=== PATIENT | female | born 1965 | race Caucasian/White ===

== ENCOUNTER → 2018-03-19 | Outpatient (CLI) | payer OTHER ==
[~2018-03-19] MED LIST: BUPR150T2; BUPR150T2 PO; BUTASPCAF PO; Bactrim Ds Tab1 EACH PO; Budeprion Sr150 MG; Budeprion Xl300 MG; CODBUTASA PO; CYAN100 PO; CYCL10 PO; DHEA PO; DULO60 PO; ESCI10; ESCI20; FETZIMA120 MG PO; FETZIMA20 MG PO; FISH1000 PO; FLUO10 PO; IRON150C; KETO10 PO; LAMO25; META800 PO; MULVITMIND PO; PANT40 PO; PENICILLIN; Pyridium200 MG PO; Sprintec1 EACH PO; TOPI100 PO; TOPI25; TOPI50 PO; Vitamin D2000 UNIT PO; ZIPR20 PO; ZOLP5 PO
== END ==
LOC: LAB 11:50 → LAB SHORT 11:50
DX: Z11.3 Encounter for screening for infections with a predominantly sexual mode of transmission (principal)
CPT/HCPCS: 87070; 87077; 87147; 87186; 87205

== ENCOUNTER 2018-09-13 20:59 | Emergency (ER) | payer OTHER ==
[~2018-09-13] VITALS: Ht 162.6 cm; Wt 79.4 kg
[2018-09-13] MEDS ORDERED: FLUO10 PO (21:18)
[2018-09-13] MEDS ORDERED: BUPR100 PO (21:18)
[2018-09-13 21:21] LABS: Source, Urine Clean Catch
[2018-09-13 21:23] LABS: Bilirubin, Urine Neg (Neg); Blood, Urine 1+ (Neg); Glucose Qualitative, Urine Neg (Neg); Ketones, Urine Neg (Neg); Leukocyte Esterase, Urine 3+ (Neg); Nitrite, Urine Neg (Neg); Protein, Urine 1+ (Neg); Specific Gravity, Urine 1.025 (1.003-1.022); Urobilinogen, Urine NORM (Normal)
[2018-09-13 21:48] LABS: Appearance, Urine Hazy (Clear); Color, Urine Yellow (P-Yellow)
[2018-09-13 21:53] LABS: Bacteria Few /hpf; Calcium Oxalate Crystals Few /hpf; Squamous Epithelial Cells Few /hpf (Few)
[2018-09-13] MEDS ORDERED: Cipro500 MG PO (21:54)
[2018-09-13] MEDS ORDERED: KETO10 PO (21:57)
== END 2018-09-13 22:01 | disposition home or self-care (01) ==
LOC: ER 20:59
PROVIDERS: Physician Assistant
DX: N12 Tubulo-interstitial nephritis, not specified as acute or chronic (principal); F32.9 Major depressive disorder, single episode, unspecified; Z88.8 Allergy status to other drugs, medicaments and biological substances; Z79.899 Other long term (current) drug therapy; Z87.891 Personal history of nicotine dependence
CPT/HCPCS: 81001; 87086; 99283

== ENCOUNTER 2019-07-29 12:25 | Emergency (ER) | payer OTHER, BC ==
[~2019-07-29] VITALS: Ht 162.6 cm; Wt 86.2 kg
[~2019-07-29 12:25] MED LIST changes: +BUPR100 PO; +Cipro500 MG PO
[2019-07-29] MEDS ORDERED: DESV50 (14:19)
[2019-07-29] MEDS ORDERED: ONDA4ODT SL (15:20)
[2019-07-29] MEDS ORDERED: HYDR1TAB94 PO (15:20)
== END 2019-07-29 15:27 | disposition home or self-care (01) ==
LOC: ER 12:25
DX: R51 Headache (principal); F32.9 Major depressive disorder, single episode, unspecified; Z86.19 Personal history of other infectious and parasitic diseases; Z88.8 Allergy status to other drugs, medicaments and biological substances; Z79.899 Other long term (current) drug therapy; Z87.891 Personal history of nicotine dependence; V49.9XXA Car occupant (driver) (passenger) injured in unspecified traffic accident, initial encounter
CPT/HCPCS: 93005; 93010; 96361; 96374; 96375; 99285-25; J1200; J1885; J2765; J7120

== ENCOUNTER 2019-08-05 17:46 | Emergency (ER) | payer BC ==
[~2019-08-05] VITALS: Ht 162.6 cm; Wt 86.2 kg
[~2019-08-05 17:46] MED LIST changes: +DESV50; +HYDR1TAB94 PO; +ONDA4ODT SL
[2019-08-05] MEDS ORDERED: ERYT1OIN LEFTEYE (18:01)
== END 2019-08-05 18:00 | disposition home or self-care (01) ==
LOC: ER 17:46
DX: H10.9 Unspecified conjunctivitis (principal); Z88.8 Allergy status to other drugs, medicaments and biological substances; Z79.899 Other long term (current) drug therapy; Z87.891 Personal history of nicotine dependence
CPT/HCPCS: 99283

== ENCOUNTER 2019-09-19 16:29 | Emergency (ER) | payer SELFPAY ==
[~2019-09-19] VITALS: Ht 162.6 cm; Wt 84.4 kg
[~2019-09-19 16:29] MED LIST changes: -DESV50; +DESV50 PO; +ERYT1OIN LEFTEYE
[2019-09-19 17:28] LABS: BASOPHILS ABSOLUTE AUTO 0.06 K/mm3 (0.00-0.23); BASOPHILS PERCENT AUTO 1 % (0-2); EOSINOPHILS ABSOLUTE AUTO 0.26 K/mm3 (0.00-0.68); EOSINOPHILS PERCENT AUTO 3 % (0-6); Hematocrit 40.7 % (33.0-51.0); Hemoglobin 13.2 g/dL (11.5-16.0); IMMATURE GRAN ABSOLUTE AUTO 0.05 K/mm3 (0.00-0.10); IMMATURE GRAN PERCENT AUTO 1 % (0-1); LYMPHOCYTES ABSOLUTE AUTO 2.17 K/mm3 (0.84-5.20); LYMPHOCYTES PERCENT AUTO 25 % (21-46); MONOCYTES ABSOLUTE AUTO 0.84 K/mm3 (0.16-1.47); MONOCYTES PERCENT AUTO 10 % (4-13); Mean Corpuscular HGB 31.1 pg (26.0-34.0); Mean Corpuscular HGB Conc 32.4 g/dL (31.5-36.5); Mean Corpuscular Volume 96 fL (80-100); NEUTROPHILS ABSOLUTE AUTO 5.15 K/mm3 (1.96-9.15); NEUTROPHILS PERCENT AUTO 61 % (41-73); Platelet Count 321 K/mm3 (150-400); RDW Coefficient Variation 12.9 % (11.7-14.2); RDW Standard Deviation 46.1 fL (35.1-46.3); Red Blood Cell Count 4.24 M/mm3 (3.80-5.20); White Blood Cell Count 8.53 K/mm3 (4.00-11.30)
[2019-09-19 17:49] LABS: Alanine Aminotransfer (ALT/SGP 27 U/L (12-78); Albumin, Blood 3.6 g/dL (3.4-5.0); Alk Phos 71 U/L (50-136); Anion Gap 5 mmol/L (6-16); Aspartate Aminotrans (AST/SGOT 21 U/L (12-37); Bilirubin, Total 0.3 mg/dL (0.1-1.0); Blood Urea Nitrogen 11 mg/dL (8-24); Bun/Creatinine Ratio 21.4 (12.0-20.0); CO2, Blood 25 mmol/L (21-32); Calcium, Blood 8.6 mg/dL (8.5-10.1); Chloride, Blood 109 mmol/L (98-108); Creatinine, Blood 0.51 mg/dL (0.40-1.00); Globulin, Blood 3.7 g/dL (2.2-4.0); Glomerular Filtration Rate >60 (60-); Glucose, Blood 105 mg/dL (70-99); Potassium, Blood 3.6 mmol/L (3.5-5.5); Sodium, Blood 139 mmol/L (136-145); Total Protein, Blood 7.3 g/dL (6.4-8.2)
[2019-09-19 17:51] LABS: Troponin I <0.015 ng/mL (0.000-0.040)
[2019-09-19] MEDS ORDERED: PROG100 (20:10)
[2019-09-19] MEDS ORDERED: ESZOPICLONE3 MG PO (20:10)
[2019-09-19] MEDS ORDERED: Prednisone20 MG PO (20:19)
[2019-09-19] MEDS ORDERED: ALBU90OI INH (20:19)
== END 2019-09-19 20:34 | disposition home or self-care (01) ==
LOC: ER 16:29
PROVIDERS: Emergency Medicine
DX: J20.9 Acute bronchitis, unspecified (principal); Z88.8 Allergy status to other drugs, medicaments and biological substances; Z87.891 Personal history of nicotine dependence; Z79.899 Other long term (current) drug therapy
CPT/HCPCS: 36415; 71046; 80053; 84484; 85025; 93005; 93010; 94640; 99284-25; J7512

== ENCOUNTER 2019-09-25 11:50 | Emergency (ER) | payer SELFPAY ==
[~2019-09-25] VITALS: Ht 162.6 cm; Wt 83.5 kg
[~2019-09-25 11:50] MED LIST changes: +ALBU90OI INH; +ESZOPICLONE3 MG PO; +PROG100; +Prednisone20 MG PO
[2019-09-25 12:33] LABS: BASOPHILS ABSOLUTE AUTO 0.07 K/mm3 (0.00-0.23); BASOPHILS PERCENT AUTO 1 % (0-2); EOSINOPHILS ABSOLUTE AUTO 0.25 K/mm3 (0.00-0.68); EOSINOPHILS PERCENT AUTO 2 % (0-6); Hematocrit 38.5 % (33.0-51.0); IMMATURE GRAN ABSOLUTE AUTO 0.11 K/mm3 (0.00-0.10); IMMATURE GRAN PERCENT AUTO 1 % (0-1); LYMPHOCYTES PERCENT AUTO 15 % (21-46); MONOCYTES ABSOLUTE AUTO 1.11 K/mm3 (0.16-1.47); MONOCYTES PERCENT AUTO 9 % (4-13); Mean Corpuscular HGB 31.9 pg (26.0-34.0); Mean Corpuscular HGB Conc 33.8 g/dL (31.5-36.5); Mean Corpuscular Volume 94 fL (80-100); NEUTROPHILS ABSOLUTE AUTO 9.23 K/mm3 (1.96-9.15); NEUTROPHILS PERCENT AUTO 73 % (41-73); Platelet Count 348 K/mm3 (150-400); RDW Coefficient Variation 12.7 % (11.7-14.2); RDW Standard Deviation 43.9 fL (35.1-46.3); Red Blood Cell Count 4.08 M/mm3 (3.80-5.20); White Blood Cell Count 12.67 K/mm3 (4.00-11.30)
[2019-09-25 12:58] LABS: Alanine Aminotransfer (ALT/SGP 24 U/L (12-78); Albumin, Blood 3.4 g/dL (3.4-5.0); Albumin/Globulin Ratio 0.8 (0.8-1.8); Alk Phos 71 U/L (50-136); Anion Gap 7 mmol/L (6-16); Aspartate Aminotrans (AST/SGOT 21 U/L (12-37); Bilirubin, Total 0.2 mg/dL (0.1-1.0); Blood Urea Nitrogen 11 mg/dL (8-24); Bun/Creatinine Ratio 17.1 (12.0-20.0); CO2, Blood 24 mmol/L (21-32); Chloride, Blood 107 mmol/L (98-108); Creatinine, Blood 0.64 mg/dL (0.40-1.00); Glomerular Filtration Rate >60 (60-); Glucose, Blood 83 mg/dL (70-99); Potassium, Blood 4.1 mmol/L (3.5-5.5); Sodium, Blood 138 mmol/L (136-145); Total Protein, Blood 7.4 g/dL (6.4-8.2)
[2019-09-25] MEDS ORDERED: Bactrim Ds Tab1 EACH PO (14:08)
[2019-09-25] MEDS ORDERED: Naprosyn500 MG PO (14:08)
== END 2019-09-25 14:22 | disposition home or self-care (01) ==
LOC: ER 11:50
PROVIDERS: Physician Assistant
DX: N61.1 Abscess of the breast and nipple (principal); F32.9 Major depressive disorder, single episode, unspecified; Z23 Encounter for immunization; Z87.891 Personal history of nicotine dependence; Z79.899 Other long term (current) drug therapy
CPT/HCPCS: 10060; 36415; 80053; 85025; 90471; 90714; 99283-25; A9270-GY

== ENCOUNTER 2019-09-30 20:45 | Emergency (ER) | payer SELFPAY ==
[~2019-09-30] VITALS: Ht 162.6 cm; Wt 83.0 kg
[~2019-09-30 20:45] MED LIST changes: +Naprosyn500 MG PO
== END 2019-09-30 23:38 | disposition home or self-care (01) ==
LOC: ER 20:45
DX: S20.36 Insect bite (nonvenomous) of front wall of thorax (principal); Z88.8 Allergy status to other drugs, medicaments and biological substances; Z79.899 Other long term (current) drug therapy; Z87.891 Personal history of nicotine dependence
CPT/HCPCS: 76604; 99283-25

== ENCOUNTER → 2019-12-27 | Outpatient (CLI) | payer OTHER | END | disposition home or self-care (01) | LOC: LAB SHORT 18:40 → LAB EV 18:40 | DX: R30.9 Painful micturition, unspecified (principal) | CPT/HCPCS: 87086 ==

== ENCOUNTER → 2020-02-06 | Outpatient (CLI) | payer OTHER | END | disposition home or self-care (01) | LOC: LAB EV 18:32 → LAB SHORT 18:32 | DX: N39.0 Urinary tract infection, site not specified (principal) | CPT/HCPCS: 87077; 87086; 87186 ==

== ENCOUNTER → 2020-09-01 | Outpatient (CLI) | payer OTHER, SELFPAY | END | disposition home or self-care (01) | LOC: LAB SHORT 19:02 → LAB 19:02 | DX: L03.90 Cellulitis, unspecified (principal) | CPT/HCPCS: 87070; 87075; 87077; 87147; 87186; 87205 ==

== ENCOUNTER → 2020-09-05 | Outpatient (CLI) | payer OTHER | END | disposition home or self-care (01) | LOC: LAB SHORT 16:52 → LAB 16:52 | DX: L03.115 Cellulitis of right lower limb (principal) | CPT/HCPCS: 87070; 87075; 87205 ==

== ENCOUNTER → 2020-10-16 | Outpatient (CLI) | payer OTHER, SELFPAY | END | disposition home or self-care (01) | LOC: LAB 18:41 → LAB SHORT 18:41 | DX: R35.0 Frequency of micturition (principal) | CPT/HCPCS: 87086 ==

== ENCOUNTER → 2022-04-27 | Outpatient (CLI) | payer OTHER | END | disposition home or self-care (01) | LOC: LAB SHORT 10:18 → LAB 10:18 | DX: J32.9 Chronic sinusitis, unspecified (principal) | CPT/HCPCS: 87070; 87077; 87147; 87186 ==

== ENCOUNTER → 2022-12-05 | Outpatient (CLI) | payer OTHER | END | disposition home or self-care (01) | LOC: LAB 18:16 → LAB SHORT 18:16 | DX: T81.49XA Infection following a procedure, other surgical site, initial encounter (principal) | CPT/HCPCS: 87070; 87077; 87147; 87186; 87205 ==

== ENCOUNTER 2023-02-10 17:32 | Emergency (ER) | payer OTHER ==
[~2023-02-10] VITALS: Ht 162.6 cm; Wt 81.2 kg
[2023-02-10 17:47] VITALS: BP 122/92
[2023-02-10 18:10] LABS: BASOPHILS ABSOLUTE AUTO 0.05 K/mm3 (0.00-0.23); BASOPHILS PERCENT AUTO 1 % (0-2); EOSINOPHILS ABSOLUTE AUTO 0.25 K/mm3 (0.00-0.68); EOSINOPHILS PERCENT AUTO 3 % (0-6); Hematocrit 38.7 % (33.0-51.0); Hemoglobin 13.1 g/dL (11.5-16.0); IMMATURE GRAN ABSOLUTE AUTO 0.05 K/mm3 (0.00-0.10); IMMATURE GRAN PERCENT AUTO 1 % (0-1); LYMPHOCYTES ABSOLUTE AUTO 1.82 K/mm3 (0.84-5.20); LYMPHOCYTES PERCENT AUTO 25 % (21-46); MONOCYTES ABSOLUTE AUTO 0.68 K/mm3 (0.16-1.47); MONOCYTES PERCENT AUTO 9 % (4-13); Mean Corpuscular HGB 30.8 pg (26.0-34.0); Mean Corpuscular HGB Conc 33.9 g/dL (31.5-36.5); Mean Corpuscular Volume 91 fL (80-100); Mean Platelet Volume 9.4 fL (9.1-12.4); NEUTROPHILS ABSOLUTE AUTO 4.55 K/mm3 (1.96-9.15); NEUTROPHILS PERCENT AUTO 61 % (41-73); Platelet Count 365 K/mm3 (150-400); RDW Coefficient Variation 14.1 % (11.7-14.2); RDW Standard Deviation 47.1 fL (35.1-46.3); Red Blood Cell Count 4.25 M/mm3 (3.80-5.20)
[2023-02-10 18:26] LABS: C-REACTIVE PROTEIN, EXT RANGE 1.21 mg/dL (0.000-0.300)
[2023-02-10 18:32] LABS: Albumin, Blood 3.5 g/dL (3.4-5.0); Albumin/Globulin Ratio 0.8 (0.8-1.8); Bilirubin, Total 0.2 mg/dL (0.1-1.0); Bun/Creatinine Ratio 25.6 (12.0-20.0); Creatinine, Blood 0.66 mg/dL (0.40-1.00); Globulin, Blood 4.5 g/dL (2.2-4.0); Potassium, Blood 3.9 mmol/L (3.5-5.5)
[2023-02-10] MEDS ORDERED: DOXY100 PO (21:56)
[2023-02-10] MEDS ORDERED: FLUC200 PO (22:01)
== END 2023-02-10 22:14 | disposition home or self-care (01) ==
LOC: ER 17:32
PROVIDERS: Physician Assistant
DX: L02.211 Cutaneous abscess of abdominal wall (principal); L03.311 Cellulitis of abdominal wall; Z22.322 Carrier or suspected carrier of Methicillin resistant Staphylococcus aureus; Z88.8 Allergy status to other drugs, medicaments and biological substances; Z79.899 Other long term (current) drug therapy; Z87.891 Personal history of nicotine dependence
CPT/HCPCS: 74177; 80053; 85025; 86140; 87070; 87075; 87077; 87147; 87186; 87205; 96374-59; 96375; 96376; 99284-25; A9270; J1170; J1885; J2405; Q9967

== ENCOUNTER 2023-02-15 11:52 | Day surgery (SDC) | payer OTHER ==
[~2023-02-15 11:52] MED LIST changes: +DOXY100 PO; +FLUC200 PO
== END 2023-02-15 22:46 | disposition home or self-care (01) ==
LOC: WOUND 11:52
DX: L02.211 Cutaneous abscess of abdominal wall (principal); L03.311 Cellulitis of abdominal wall; B95.62 Methicillin resistant Staphylococcus aureus infection as the cause of diseases classified elsewhere; S31.109D Unspecified open wound of abdominal wall, unspecified quadrant without penetration into peritoneal cavity, subsequent encounter; X58.XXXD Exposure to other specified factors, subsequent encounter; Z87.891 Personal history of nicotine dependence
CPT/HCPCS: A9270; G0463

== ENCOUNTER 2023-02-17 01:00 | Day surgery (SDC) | payer OTHER | END 2023-02-17 22:43 | disposition home or self-care (01) | LOC: WOUND 01:00 | DX: S31.109D Unspecified open wound of abdominal wall, unspecified quadrant without penetration into peritoneal cavity, subsequent encounter (principal); L02.211 Cutaneous abscess of abdominal wall; L03.311 Cellulitis of abdominal wall; B95.62 Methicillin resistant Staphylococcus aureus infection as the cause of diseases classified elsewhere | CPT/HCPCS: G0463 ==

== ENCOUNTER 2023-02-20 00:36 | Day surgery (SDC) | payer OTHER | END 2023-02-20 23:04 | disposition home or self-care (01) | LOC: WOUND 00:36 | DX: L03.311 Cellulitis of abdominal wall (principal); S31.109D Unspecified open wound of abdominal wall, unspecified quadrant without penetration into peritoneal cavity, subsequent encounter; L02.211 Cutaneous abscess of abdominal wall; B95.62 Methicillin resistant Staphylococcus aureus infection as the cause of diseases classified elsewhere; X58.XXXD Exposure to other specified factors, subsequent encounter | CPT/HCPCS: A9270; G0463 ==

== ENCOUNTER 2023-02-22 01:54 | Day surgery (SDC) | payer OTHER | END 2023-02-22 22:54 | disposition home or self-care (01) | LOC: WOUND 01:54 | DX: L02.211 Cutaneous abscess of abdominal wall (principal); L03.311 Cellulitis of abdominal wall; B95.62 Methicillin resistant Staphylococcus aureus infection as the cause of diseases classified elsewhere; S31.109D Unspecified open wound of abdominal wall, unspecified quadrant without penetration into peritoneal cavity, subsequent encounter; X58.XXXD Exposure to other specified factors, subsequent encounter | CPT/HCPCS: G0463 ==

== ENCOUNTER 2023-02-24 03:55 | Day surgery (SDC) | payer OTHER | END 2023-02-24 22:37 | disposition home or self-care (01) | LOC: WOUND 03:55 | DX: L03.311 Cellulitis of abdominal wall (principal); S31.109D Unspecified open wound of abdominal wall, unspecified quadrant without penetration into peritoneal cavity, subsequent encounter; L02.211 Cutaneous abscess of abdominal wall; B95.62 Methicillin resistant Staphylococcus aureus infection as the cause of diseases classified elsewhere | CPT/HCPCS: G0463 ==

== ENCOUNTER 2023-02-27 00:16 | Day surgery (SDC) | payer OTHER | END 2023-02-27 23:03 | disposition home or self-care (01) | LOC: WOUND 00:16 | DX: L03.311 Cellulitis of abdominal wall (principal); S31.109D Unspecified open wound of abdominal wall, unspecified quadrant without penetration into peritoneal cavity, subsequent encounter; L02.211 Cutaneous abscess of abdominal wall; B95.62 Methicillin resistant Staphylococcus aureus infection as the cause of diseases classified elsewhere; X58.XXXD Exposure to other specified factors, subsequent encounter | CPT/HCPCS: G0463 ==

== ENCOUNTER 2023-03-22 02:33 | Day surgery (SDC) | payer OTHER | END 2023-03-22 23:10 | disposition home or self-care (01) | LOC: WOUND 02:33 | DX: L02.211 Cutaneous abscess of abdominal wall (principal); L03.311 Cellulitis of abdominal wall; S31.109D Unspecified open wound of abdominal wall, unspecified quadrant without penetration into peritoneal cavity, subsequent encounter; B95.62 Methicillin resistant Staphylococcus aureus infection as the cause of diseases classified elsewhere | CPT/HCPCS: A9270; G0463 ==

== ENCOUNTER → 2023-03-25 | Outpatient (CLI) | payer OTHER | END | disposition home or self-care (01) | LOC: LAB 15:03 → LAB SHORT 15:03 | DX: N39.0 Urinary tract infection, site not specified (principal) | CPT/HCPCS: 87077; 87086; 87147; 87186 ==

== ENCOUNTER 2023-03-27 02:25 | Day surgery (SDC) | payer OTHER | END 2023-03-27 23:01 | disposition home or self-care (01) | LOC: WOUND | DX: L02.211 Cutaneous abscess of abdominal wall (principal); L03.311 Cellulitis of abdominal wall; S31.109D Unspecified open wound of abdominal wall, unspecified quadrant without penetration into peritoneal cavity, subsequent encounter; B95.62 Methicillin resistant Staphylococcus aureus infection as the cause of diseases classified elsewhere | CPT/HCPCS: A9270 ==

== ENCOUNTER 2023-04-03 00:38 | Day surgery (SDC) | payer OTHER | END 2023-04-03 22:49 | disposition home or self-care (01) | LOC: WOUND 00:38 | DX: L02.211 Cutaneous abscess of abdominal wall (principal); L03.311 Cellulitis of abdominal wall; S31.109D Unspecified open wound of abdominal wall, unspecified quadrant without penetration into peritoneal cavity, subsequent encounter; B95.62 Methicillin resistant Staphylococcus aureus infection as the cause of diseases classified elsewhere | CPT/HCPCS: A9270; G0463 ==

== ENCOUNTER 2023-04-10 01:42 | Day surgery (SDC) | payer OTHER | END 2023-04-10 22:56 | disposition home or self-care (01) | LOC: WOUND 01:42 | DX: L02.211 Cutaneous abscess of abdominal wall (principal); S31.109D Unspecified open wound of abdominal wall, unspecified quadrant without penetration into peritoneal cavity, subsequent encounter; X58.XXXD Exposure to other specified factors, subsequent encounter; L03.311 Cellulitis of abdominal wall; B95.62 Methicillin resistant Staphylococcus aureus infection as the cause of diseases classified elsewhere | CPT/HCPCS: A9270 ==

== ENCOUNTER 2023-04-12 01:22 | Day surgery (SDC) | payer OTHER | END 2023-04-12 22:50 | disposition home or self-care (01) | LOC: WOUND 01:22 | DX: S31.109D Unspecified open wound of abdominal wall, unspecified quadrant without penetration into peritoneal cavity, subsequent encounter (principal); L02.211 Cutaneous abscess of abdominal wall; L03.311 Cellulitis of abdominal wall; B95.62 Methicillin resistant Staphylococcus aureus infection as the cause of diseases classified elsewhere; X58.XXXD Exposure to other specified factors, subsequent encounter | CPT/HCPCS: G0463 ==

== ENCOUNTER 2023-04-14 00:57 | Day surgery (SDC) | payer OTHER | END 2023-04-14 22:58 | disposition home or self-care (01) | LOC: WOUND 00:57 | DX: S31.109D Unspecified open wound of abdominal wall, unspecified quadrant without penetration into peritoneal cavity, subsequent encounter (principal); L02.211 Cutaneous abscess of abdominal wall; L03.311 Cellulitis of abdominal wall; B95.62 Methicillin resistant Staphylococcus aureus infection as the cause of diseases classified elsewhere | CPT/HCPCS: G0463 ==

== ENCOUNTER 2023-04-18 08:44 | Day surgery (SDC) | payer OTHER | END 2023-04-18 23:19 | disposition home or self-care (01) | LOC: WOUND 08:44 | DX: S31.109D Unspecified open wound of abdominal wall, unspecified quadrant without penetration into peritoneal cavity, subsequent encounter (principal); L02.211 Cutaneous abscess of abdominal wall; L03.311 Cellulitis of abdominal wall; B95.62 Methicillin resistant Staphylococcus aureus infection as the cause of diseases classified elsewhere | CPT/HCPCS: G0463 ==

== ENCOUNTER 2023-04-20 01:36 | Day surgery (SDC) | payer OTHER | END 2023-04-20 22:41 | disposition home or self-care (01) | LOC: WOUND 01:36 | DX: L02.211 Cutaneous abscess of abdominal wall (principal); L03.311 Cellulitis of abdominal wall; S31.109D Unspecified open wound of abdominal wall, unspecified quadrant without penetration into peritoneal cavity, subsequent encounter; B95.62 Methicillin resistant Staphylococcus aureus infection as the cause of diseases classified elsewhere | CPT/HCPCS: G0463 ==

== ENCOUNTER 2023-04-24 01:06 | Day surgery (SDC) | payer OTHER | END 2023-04-24 22:51 | disposition home or self-care (01) | LOC: WOUND 01:06 | DX: S31.109D Unspecified open wound of abdominal wall, unspecified quadrant without penetration into peritoneal cavity, subsequent encounter (principal); X58.XXXD Exposure to other specified factors, subsequent encounter; L02.211 Cutaneous abscess of abdominal wall; L03.311 Cellulitis of abdominal wall; B95.62 Methicillin resistant Staphylococcus aureus infection as the cause of diseases classified elsewhere | CPT/HCPCS: A9270; G0463 ==

== ENCOUNTER 2023-04-28 07:45 | Day surgery (SDC) | payer OTHER | END 2023-04-28 22:48 | disposition home or self-care (01) | LOC: WOUND 07:45 | DX: S31.109D Unspecified open wound of abdominal wall, unspecified quadrant without penetration into peritoneal cavity, subsequent encounter (principal); L02.211 Cutaneous abscess of abdominal wall; X58.XXXD Exposure to other specified factors, subsequent encounter | CPT/HCPCS: G0463 ==

== ENCOUNTER 2023-05-01 01:46 | Day surgery (SDC) | payer OTHER | END 2023-05-01 23:03 | disposition home or self-care (01) | LOC: WOUND 01:46 | DX: L02.211 Cutaneous abscess of abdominal wall (principal); L03.311 Cellulitis of abdominal wall; S31.109D Unspecified open wound of abdominal wall, unspecified quadrant without penetration into peritoneal cavity, subsequent encounter; B95.62 Methicillin resistant Staphylococcus aureus infection as the cause of diseases classified elsewhere | CPT/HCPCS: A9270; G0463 ==

== ENCOUNTER → 2023-05-16 | Outpatient (CLI) | payer OTHER | LOC: LAB SHORT 16:03 → LAB 16:03 | DX: R39.15 Urgency of urination (principal) | CPT/HCPCS: 87086 ==

== ENCOUNTER 2023-05-22 01:10 | Day surgery (SDC) | payer OTHER | END 2023-05-22 23:13 | disposition home or self-care (01) | LOC: WOUND 01:10 | DX: L03.311 Cellulitis of abdominal wall (principal); L02.211 Cutaneous abscess of abdominal wall; B95.62 Methicillin resistant Staphylococcus aureus infection as the cause of diseases classified elsewhere; S31.109D Unspecified open wound of abdominal wall, unspecified quadrant without penetration into peritoneal cavity, subsequent encounter; X58.XXXD Exposure to other specified factors, subsequent encounter | CPT/HCPCS: A9270; G0463 ==

== ENCOUNTER 2023-05-29 00:27 | Day surgery (SDC) | payer OTHER | END 2023-05-29 22:55 | disposition home or self-care (01) | LOC: WOUND 00:27 | DX: L02.11 Cutaneous abscess of neck (principal); L03.311 Cellulitis of abdominal wall; S31.109D Unspecified open wound of abdominal wall, unspecified quadrant without penetration into peritoneal cavity, subsequent encounter; B95.62 Methicillin resistant Staphylococcus aureus infection as the cause of diseases classified elsewhere | CPT/HCPCS: A9270; G0463 ==

== ENCOUNTER 2023-06-19 02:33 | Day surgery (SDC) | payer OTHER | END 2023-06-19 22:44 | disposition home or self-care (01) | LOC: WOUND 02:33 | DX: L02.211 Cutaneous abscess of abdominal wall (principal); L03.311 Cellulitis of abdominal wall; B95.62 Methicillin resistant Staphylococcus aureus infection as the cause of diseases classified elsewhere; S31.109D Unspecified open wound of abdominal wall, unspecified quadrant without penetration into peritoneal cavity, subsequent encounter | CPT/HCPCS: A9270; G0463 ==

== ENCOUNTER 2023-06-26 00:45 | Day surgery (SDC) | payer OTHER ==
[~2023-06-26 00:45] MED LIST changes: -PROG100; +PROG100 PO
[2023-06-29] MEDS ORDERED: Budeprion Xl300 MG PO (12:20)
[2023-06-29] MEDS ORDERED: VITAMIN D310 MC4 PO (12:21)
[2023-06-29] MEDS ORDERED: CAPLYTA42 MG PO (12:22)
[2023-06-29] MEDS ORDERED: Adipex-P37.5 M1 PO (12:22)
[2023-06-29] MEDS ORDERED: MULVITA PO (12:22)
[2023-06-29] MEDS ORDERED: MINOXIDIL PO (12:22)
[2023-06-29] MEDS ORDERED: KYZATREX100 MG (12:23)
== END 2023-06-26 22:53 | disposition home or self-care (01) ==
LOC: WOUND 00:45
DX: S31.109D Unspecified open wound of abdominal wall, unspecified quadrant without penetration into peritoneal cavity, subsequent encounter (principal); X58.XXXD Exposure to other specified factors, subsequent encounter; L02.211 Cutaneous abscess of abdominal wall; L03.311 Cellulitis of abdominal wall; B95.62 Methicillin resistant Staphylococcus aureus infection as the cause of diseases classified elsewhere
CPT/HCPCS: G0463

== ENCOUNTER 2023-06-30 09:38 | Day surgery (SDC) | payer OTHER ==
[2023-06-30] VITALS (13 sets, daily range): BP systolic 97–119; BP diastolic 53–79
[~2023-06-30] VITALS: Ht 162.6 cm; Wt 83.0 kg
[~2023-06-30 09:38] MED LIST changes: +Adipex-P37.5 M1 PO; +Budeprion Xl300 MG PO; +CAPLYTA42 MG PO; +KYZATREX100 MG; +MINOXIDIL PO; +MULVITA PO; +VITAMIN D310 MC4 PO
--- NOTE | 2023-06-30 12:51 | NUR ---
Ambulatory in Day SurgeryPre-Op teaching done. Pt verbalizes understanding. History, Chart, Medications and Allergies reviewed before start of procedure.Patient confirms NPO status and agrees with scheduled surgery.EXCEPT FOR SIPS OF WATER AT 1100. Patient States Post-Procedure ride home has been arranged.
--- NOTE | 2023-06-30 15:38 | NUR ---
PT TO DAY SURGERY STEP DOWN UNIT FROM PACU. PT AWAKE AND ORIENTED, ABLE TO MOVE SELF IN BED. PT HAS SAMUEL DRAIN AND BANDAGE OVER CENTER OF ABD THAT IS C/D/I. PT REQUESTING PO FLUIDS. PT RIDE IS HERE.
--- NOTE | 2023-06-30 15:53 | NUR ---
PT TOLERATING PO FLUIDS AND CRACKERS WELL. Discharge instructions reviewed with patient. Patient verbalizes understanding. Copy given to patient to take home. Pt has had JAIME drains before, education paper reviewed and sending home with pt. Bandage remains c/d/i. jaime drain in place with no change.
--- NOTE | 2023-06-30 16:25 | NUR ---
ABD BINDER GIVEN TO PT AND PUT ON; PT UNDERSTANDS HOW TO USE. Patient up to Ambulate independently. Gait steady. UP TO VOID, Patient States Post-Procedure ride home has been arranged. Discharged via wheelchair to private car for ride home.
== END 2023-06-30 16:25 | disposition home or self-care (01) ==
LOC: ORSCMMR 09:38 → ORD 11:15 → ORSCMMR 11:15
PROVIDERS: Surgery
PROC: 0JB80ZZ Excision of Abdomen Subcutaneous Tissue and Fascia, Open Approach (ICD-10-PCS; principal; 2023-06-30 14:00)
DX: L02.211 Cutaneous abscess of abdominal wall (principal); F32.A Depression, unspecified; F41.9 Anxiety disorder, unspecified; B19.20 Unspecified viral hepatitis C without hepatic coma; Z87.891 Personal history of nicotine dependence; Z68.31 Body mass index [BMI] 31.0-31.9, adult; Z79.899 Other long term (current) drug therapy
CPT/HCPCS: 88305; A9270; J0690; J1100; J1885; J2250; J2405; J2704; J2765; J3010; J7120

== ENCOUNTER 2023-07-03 02:49 | Day surgery (SDC) | payer OTHER | END 2023-07-03 23:05 | disposition home or self-care (01) | LOC: WOUND 02:49 | DX: Z09 Encounter for follow-up examination after completed treatment for conditions other than malignant neoplasm (principal) | CPT/HCPCS: G0463 ==

== ENCOUNTER → 2023-07-08 | Outpatient (CLI) | payer OTHER | LOC: LAB 15:01 → LAB SHORT 15:01 | DX: T81.49XA Infection following a procedure, other surgical site, initial encounter (principal) | CPT/HCPCS: 87070; 87075; 87077; 87147; 87186; 87205 ==

== ENCOUNTER 2023-07-10 03:04 | Day surgery (SDC) | payer OTHER | END 2023-07-10 23:05 | disposition home or self-care (01) | LOC: WOUND | DX: S31.109D Unspecified open wound of abdominal wall, unspecified quadrant without penetration into peritoneal cavity, subsequent encounter (principal); L02.211 Cutaneous abscess of abdominal wall; L03.311 Cellulitis of abdominal wall; B95.62 Methicillin resistant Staphylococcus aureus infection as the cause of diseases classified elsewhere | CPT/HCPCS: A9270; G0463 ==

== ENCOUNTER 2023-07-17 03:42 | Day surgery (SDC) | payer OTHER | END 2023-07-17 22:53 | disposition home or self-care (01) | LOC: WOUND 03:42 | DX: T81.31XD Disruption of external operation (surgical) wound, not elsewhere classified, subsequent encounter (principal); L02.211 Cutaneous abscess of abdominal wall; L03.311 Cellulitis of abdominal wall; B95.62 Methicillin resistant Staphylococcus aureus infection as the cause of diseases classified elsewhere; Y83.8 Other surgical procedures as the cause of abnormal reaction of the patient, or of later complication, without mention of misadventure at the time of the procedure | CPT/HCPCS: G0463 ==

== ENCOUNTER 2023-07-19 02:38 | Day surgery (SDC) | payer OTHER | END 2023-07-19 22:48 | disposition home or self-care (01) | LOC: WOUND 02:38 | DX: L03.211 Cellulitis of face (principal); L03.311 Cellulitis of abdominal wall; B95.62 Methicillin resistant Staphylococcus aureus infection as the cause of diseases classified elsewhere; S31.109D Unspecified open wound of abdominal wall, unspecified quadrant without penetration into peritoneal cavity, subsequent encounter; X58.XXXD Exposure to other specified factors, subsequent encounter | CPT/HCPCS: 87081; 87147; G0463 ==

== ENCOUNTER 2023-07-21 03:12 | Day surgery (SDC) | payer OTHER | END 2023-07-21 23:13 | disposition home or self-care (01) | LOC: WOUND 03:12 | DX: S31.109D Unspecified open wound of abdominal wall, unspecified quadrant without penetration into peritoneal cavity, subsequent encounter (principal); L02.211 Cutaneous abscess of abdominal wall; L03.311 Cellulitis of abdominal wall; B95.62 Methicillin resistant Staphylococcus aureus infection as the cause of diseases classified elsewhere; X58.XXXD Exposure to other specified factors, subsequent encounter | CPT/HCPCS: G0463 ==

== ENCOUNTER 2023-07-26 04:03 | Day surgery (SDC) | payer OTHER | END 2023-07-26 23:05 | disposition home or self-care (01) | LOC: WOUND 04:03 | DX: S31.109D Unspecified open wound of abdominal wall, unspecified quadrant without penetration into peritoneal cavity, subsequent encounter (principal); L02.11 Cutaneous abscess of neck; L03.311 Cellulitis of abdominal wall; B95.62 Methicillin resistant Staphylococcus aureus infection as the cause of diseases classified elsewhere | CPT/HCPCS: 87081 ==

== ENCOUNTER 2023-07-28 03:55 | Day surgery (SDC) | payer OTHER | END 2023-07-28 22:46 | disposition home or self-care (01) | LOC: WOUND 03:55 | DX: S31.109D Unspecified open wound of abdominal wall, unspecified quadrant without penetration into peritoneal cavity, subsequent encounter (principal); L02.211 Cutaneous abscess of abdominal wall; L03.311 Cellulitis of abdominal wall; B95.62 Methicillin resistant Staphylococcus aureus infection as the cause of diseases classified elsewhere; X58.XXXD Exposure to other specified factors, subsequent encounter | CPT/HCPCS: G0463 ==

== ENCOUNTER 2023-07-31 00:26 | Day surgery (SDC) | payer OTHER | END 2023-07-31 22:56 | disposition home or self-care (01) | LOC: WOUND 00:26 | DX: T81.31XD Disruption of external operation (surgical) wound, not elsewhere classified, subsequent encounter (principal); L02.211 Cutaneous abscess of abdominal wall; L03.311 Cellulitis of abdominal wall; B95.62 Methicillin resistant Staphylococcus aureus infection as the cause of diseases classified elsewhere; Y83.8 Other surgical procedures as the cause of abnormal reaction of the patient, or of later complication, without mention of misadventure at the time of the procedure | CPT/HCPCS: A9270; G0463 ==

== ENCOUNTER 2023-08-04 03:06 | Day surgery (SDC) | payer OTHER | END 2023-08-05 00:06 | disposition home or self-care (01) | LOC: WOUND 03:06 | DX: S31.109D Unspecified open wound of abdominal wall, unspecified quadrant without penetration into peritoneal cavity, subsequent encounter (principal); L02.211 Cutaneous abscess of abdominal wall; L03.311 Cellulitis of abdominal wall; X58.XXXD Exposure to other specified factors, subsequent encounter | CPT/HCPCS: G0463 ==

== ENCOUNTER 2023-08-10 01:52 | Day surgery (SDC) | payer OTHER | END 2023-08-10 22:56 | disposition home or self-care (01) | LOC: WOUND 01:52 | DX: S31.109D Unspecified open wound of abdominal wall, unspecified quadrant without penetration into peritoneal cavity, subsequent encounter (principal); L02.211 Cutaneous abscess of abdominal wall; L03.311 Cellulitis of abdominal wall; X58.XXXD Exposure to other specified factors, subsequent encounter | CPT/HCPCS: G0463 ==

== ENCOUNTER 2023-08-21 04:57 | Day surgery (SDC) | payer OTHER | END 2023-08-21 22:44 | disposition home or self-care (01) | LOC: WOUND 04:57 | DX: S31.109D Unspecified open wound of abdominal wall, unspecified quadrant without penetration into peritoneal cavity, subsequent encounter (principal); L02.211 Cutaneous abscess of abdominal wall; L03.311 Cellulitis of abdominal wall | CPT/HCPCS: G0463 ==

== ENCOUNTER → 2023-09-24 | Outpatient (CLI) | payer OTHER ==
[2023-09-24 15:09] LABS: BASOPHILS ABSOLUTE AUTO 0.04 K/mm3 (0.00-0.23); BASOPHILS PERCENT AUTO 0 % (0-2); EOSINOPHILS ABSOLUTE AUTO 0.11 K/mm3 (0.00-0.68); EOSINOPHILS PERCENT AUTO 1 % (0-6); Hematocrit 41.7 % (33.0-51.0); Hemoglobin 14.1 g/dL (11.5-16.0); IMMATURE GRAN ABSOLUTE AUTO 0.04 K/mm3 (0.00-0.10); IMMATURE GRAN PERCENT AUTO 0 % (0-1); LYMPHOCYTES ABSOLUTE AUTO 1.32 K/mm3 (0.84-5.20); LYMPHOCYTES PERCENT AUTO 12 % (21-46); MONOCYTES ABSOLUTE AUTO 0.73 K/mm3 (0.16-1.47); MONOCYTES PERCENT AUTO 7 % (4-13); Mean Corpuscular HGB 31.1 pg (26.0-34.0); Mean Corpuscular HGB Conc 33.8 g/dL (31.5-36.5); Mean Corpuscular Volume 92 fL (80-100); Mean Platelet Volume 9.8 fL (9.1-12.4); NEUTROPHILS ABSOLUTE AUTO 8.64 K/mm3 (1.96-9.15); NEUTROPHILS PERCENT AUTO 79 % (41-73); Platelet Count 336 K/mm3 (150-400); RDW Coefficient Variation 13.6 % (11.7-14.2); RDW Standard Deviation 45.8 fL (35.1-46.3); Red Blood Cell Count 4.54 M/mm3 (3.80-5.20); White Blood Cell Count 10.88 K/mm3 (4.00-11.30)
[2023-09-24 15:17] LABS: Albumin, Blood 3.6 g/dL (3.4-5.0); Albumin/Globulin Ratio 0.9 (0.8-1.8); Bilirubin, Total 0.2 mg/dL (0.1-1.0); Bun/Creatinine Ratio 18.1 (12.0-20.0); Calcium, Blood 9.3 mg/dL (8.5-10.1); Creatinine, Blood 0.94 mg/dL (0.40-1.00); Globulin, Blood 4.2 g/dL (2.2-4.0); Potassium, Blood 4.3 mmol/L (3.5-5.5); Total Protein, Blood 7.8 g/dL (6.4-8.2)
== END ==
LOC: LAB 15:00 → LAB SHORT 15:00
PROVIDERS: Chiropractor
DX: N39.0 Urinary tract infection, site not specified (principal); R10.9 Unspecified abdominal pain
CPT/HCPCS: 80053; 85025; 87077; 87086; 87186

== ENCOUNTER 2023-09-29 00:49 | Day surgery (SDC) | payer OTHER | END 2023-09-29 23:10 | disposition home or self-care (01) | LOC: WOUND 00:49 | DX: L02.211 Cutaneous abscess of abdominal wall (principal); L03.311 Cellulitis of abdominal wall; S31.109D Unspecified open wound of abdominal wall, unspecified quadrant without penetration into peritoneal cavity, subsequent encounter; X58.XXXD Exposure to other specified factors, subsequent encounter | CPT/HCPCS: G0463 ==

== ENCOUNTER 2023-10-04 18:58 | Emergency (ER) | payer OTHER ==
[~2023-10-04] VITALS: Ht 162.6 cm; Wt 81.7 kg
[2023-10-04 19:09] VITALS: BP 143/79
== END 2023-10-04 21:41 | disposition home or self-care (01) ==
LOC: ER 18:58
DX: J18.9 Pneumonia, unspecified organism (principal); Z87.891 Personal history of nicotine dependence; Z79.899 Other long term (current) drug therapy; Z88.5 Allergy status to narcotic agent; Z88.8 Allergy status to other drugs, medicaments and biological substances
CPT/HCPCS: 71046; 99284-25

== ENCOUNTER 2024-02-26 16:49 | Emergency (ER) | payer OTHER ==
[~2024-02-26] VITALS: Ht 162.6 cm; Wt 78.9 kg
[2024-02-26 17:20] VITALS: BP 164/74
[2024-02-26 17:47] LABS: BASOPHILS ABSOLUTE AUTO 0.05 K/mm3 (0.00-0.23); BASOPHILS PERCENT AUTO 1 % (0-2); EOSINOPHILS ABSOLUTE AUTO 0.26 K/mm3 (0.00-0.68); EOSINOPHILS PERCENT AUTO 3 % (0-6); Hematocrit 44.7 % (33.0-51.0); IMMATURE GRAN ABSOLUTE AUTO 0.08 K/mm3 (0.00-0.10); IMMATURE GRAN PERCENT AUTO 1 % (0-1); LYMPHOCYTES ABSOLUTE AUTO 1.37 K/mm3 (0.84-5.20); LYMPHOCYTES PERCENT AUTO 14 % (21-46); MONOCYTES ABSOLUTE AUTO 0.94 K/mm3 (0.16-1.47); MONOCYTES PERCENT AUTO 10 % (4-13); Mean Corpuscular HGB 31.4 pg (26.0-34.0); Mean Corpuscular HGB Conc 33.6 g/dL (31.5-36.5); Mean Corpuscular Volume 94 fL (80-100); Mean Platelet Volume 9.5 fL (9.1-12.4); NEUTROPHILS ABSOLUTE AUTO 6.93 K/mm3 (1.96-9.15); NEUTROPHILS PERCENT AUTO 72 % (41-73); Platelet Count 342 K/mm3 (150-400); RDW Coefficient Variation 13.6 % (11.7-14.2); RDW Standard Deviation 46.7 fL (35.1-46.3); Red Blood Cell Count 4.77 M/mm3 (3.80-5.20); White Blood Cell Count 9.63 K/mm3 (4.00-11.30)
[2024-02-26 18:10] LABS: Albumin, Blood 3.6 g/dL (3.4-5.0); Albumin/Globulin Ratio 0.8 (0.8-1.8); Bilirubin, Total 0.5 mg/dL (0.1-1.0); Bun/Creatinine Ratio 20.2 (12.0-20.0); Calcium, Blood 9.2 mg/dL (8.5-10.1); Creatinine, Blood 0.79 mg/dL (0.40-1.00); Globulin, Blood 4.3 g/dL (2.2-4.0); Potassium, Blood 4.3 mmol/L (3.5-5.5); Total Protein, Blood 7.9 g/dL (6.4-8.2)
[2024-03-06] MEDS ORDERED: SULTRIDS PO (00:11)
[2024-03-06] MEDS ORDERED: Diflucan100 MG PO (00:11)
== END 2024-02-26 20:56 | disposition home or self-care (01) ==
LOC: ER 16:49
PROVIDERS: Physician Assistant
DX: L76.34 Postprocedural seroma of skin and subcutaneous tissue following other procedure (principal); Y83.8 Other surgical procedures as the cause of abnormal reaction of the patient, or of later complication, without mention of misadventure at the time of the procedure; F32.A Depression, unspecified; Z79.899 Other long term (current) drug therapy
CPT/HCPCS: 74177; 80053; 85025; 99284-25; Q9967

== ENCOUNTER 2024-03-05 18:05 | Emergency (ER) | payer OTHER ==
[~2024-03-05] VITALS: Ht 162.6 cm; Wt 77.1 kg
[2024-03-05 18:24] VITALS: BP 118/59
[2024-03-05 18:53] LABS: BASOPHILS ABSOLUTE AUTO 0.04 K/mm3 (0.00-0.23); BASOPHILS PERCENT AUTO 1 % (0-2); EOSINOPHILS ABSOLUTE AUTO 0.23 K/mm3 (0.00-0.68); EOSINOPHILS PERCENT AUTO 4 % (0-6); IMMATURE GRAN ABSOLUTE AUTO 0.02 K/mm3 (0.00-0.10); IMMATURE GRAN PERCENT AUTO 0 % (0-1); LYMPHOCYTES ABSOLUTE AUTO 1.03 K/mm3 (0.84-5.20); LYMPHOCYTES PERCENT AUTO 16 % (21-46); MONOCYTES ABSOLUTE AUTO 0.83 K/mm3 (0.16-1.47); MONOCYTES PERCENT AUTO 13 % (4-13); Mean Corpuscular HGB 31.9 pg (26.0-34.0); Mean Corpuscular HGB Conc 34.2 g/dL (31.5-36.5); Mean Corpuscular Volume 93 fL (80-100); Mean Platelet Volume 9.5 fL (9.1-12.4); NEUTROPHILS ABSOLUTE AUTO 4.15 K/mm3 (1.96-9.15); NEUTROPHILS PERCENT AUTO 66 % (41-73); Platelet Count 272 K/mm3 (150-400); RDW Coefficient Variation 13.6 % (11.7-14.2); RDW Standard Deviation 46.1 fL (35.1-46.3); Red Blood Cell Count 4.08 M/mm3 (3.80-5.20)
[2024-03-05 19:12] LABS: Albumin, Blood 3.2 g/dL (3.4-5.0); Albumin/Globulin Ratio 0.8 (0.8-1.8); Bilirubin, Total 0.2 mg/dL (0.1-1.0); Bun/Creatinine Ratio 18.1 (12.0-20.0); Creatinine, Blood 0.83 mg/dL (0.40-1.00); Potassium, Blood 3.8 mmol/L (3.5-5.5); Total Protein, Blood 7.2 g/dL (6.4-8.2)
[2024-03-05 22:59] LABS: Source, Urine Clean Catch
[2024-03-05 23:00] LABS: Bilirubin, Urine Neg (Neg); Blood, Urine Neg (Neg); Glucose Qualitative, Urine Neg (Neg); Ketones, Urine Neg (Neg); Leukocyte Esterase, Urine 1+ (Neg); Nitrite, Urine Neg (Neg); Protein, Urine 1+ (Neg); Urobilinogen, Urine NORM (Normal)
[2024-03-05 23:27] LABS: Appearance, Urine Hazy (Clear); Color, Urine Yellow (P-Yellow)
[2024-03-05 23:28] LABS: Amorphous Mod (0-Heavy); Bacteria Mod /hpf; Red Blood Cells, Urine 0-2 /hpf (0-2); Squamous Epithelial Cells Few /hpf (Few)
[2024-03-06] MEDS ORDERED: Diflucan100 MG PO (00:11)
[2024-03-06] MEDS ORDERED: SULTRIDS PO (00:11)
== END 2024-03-05 23:28 | disposition home or self-care (01) ==
LOC: ER 18:05
PROVIDERS: Emergency Medicine; Student in an Organized Health Care Education/Training Program
DX: L02.211 Cutaneous abscess of abdominal wall (principal); Z88.8 Allergy status to other drugs, medicaments and biological substances; Z88.5 Allergy status to narcotic agent; Z79.899 Other long term (current) drug therapy
CPT/HCPCS: 74177; 80053; 81001; 85025; 87086; 87147; 99284-25; Q9967

== ENCOUNTER 2024-05-06 20:23 | Emergency (ER) | payer OTHER ==
[~2024-05-06] VITALS: Ht 162.6 cm; Wt 81.7 kg
[~2024-05-06 20:23] MED LIST changes: +Diflucan100 MG PO; +SULTRIDS PO
[2024-05-06 20:58] LABS: Source, Urine Clean Catch
[2024-05-06 21:01] LABS: Bilirubin, Urine Neg (Neg); Blood, Urine Neg (Neg); Glucose Qualitative, Urine Neg (Neg); Ketones, Urine Neg (Neg); Leukocyte Esterase, Urine 1+ (Neg); Nitrite, Urine Neg (Neg); Protein, Urine Neg (Neg); Urobilinogen, Urine 1+ (Normal); pH, Urine 6.5 (5.0-8.0)
[2024-05-06 21:13] LABS: Appearance, Urine Hazy (Clear); Color, Urine Pale Yellow (P-Yellow)
[2024-05-06 21:13] LABS: BASOPHILS ABSOLUTE AUTO 0.06 K/mm3 (0.00-0.23); BASOPHILS PERCENT AUTO 1 % (0-2); EOSINOPHILS ABSOLUTE AUTO 0.23 K/mm3 (0.00-0.68); EOSINOPHILS PERCENT AUTO 3 % (0-6); Hematocrit 37.3 % (33.0-51.0); Hemoglobin 12.9 g/dL (11.5-16.0); IMMATURE GRAN ABSOLUTE AUTO 0.04 K/mm3 (0.00-0.10); IMMATURE GRAN PERCENT AUTO 1 % (0-1); LYMPHOCYTES ABSOLUTE AUTO 1.85 K/mm3 (0.84-5.20); LYMPHOCYTES PERCENT AUTO 23 % (21-46); MONOCYTES PERCENT AUTO 12 % (4-13); Mean Corpuscular HGB 31.8 pg (26.0-34.0); Mean Corpuscular HGB Conc 34.6 g/dL (31.5-36.5); Mean Corpuscular Volume 92 fL (80-100); Mean Platelet Volume 9.2 fL (9.1-12.4); NEUTROPHILS ABSOLUTE AUTO 4.92 K/mm3 (1.96-9.15); NEUTROPHILS PERCENT AUTO 61 % (41-73); Platelet Count 311 K/mm3 (150-400); RDW Coefficient Variation 13.2 % (11.7-14.2); Red Blood Cell Count 4.06 M/mm3 (3.80-5.20)
[2024-05-06 21:14] LABS: Bacteria Many /hpf; Squamous Epithelial Cells Few /hpf (Few)
[2024-05-06 22:51] LABS: Albumin, Blood 3.4 g/dL (3.4-5.0); Albumin/Globulin Ratio 0.9 (0.8-1.8); Bilirubin, Total 0.3 mg/dL (0.1-1.0); Calcium, Blood 9.4 mg/dL (8.5-10.1); Creatinine, Blood 0.86 mg/dL (0.40-1.00); Globulin, Blood 3.9 g/dL (2.2-4.0); Potassium, Blood 4.2 mmol/L (3.5-5.5); Total Protein, Blood 7.3 g/dL (6.4-8.2)
[2024-05-07] MEDS ORDERED: Trimethoprim/Sulfamethoxazole DS Tab PO ONE (00:25)
[2024-05-07 00:27] VITALS: BP 128/86
[2024-05-07] MEDS ORDERED: BACTRIM DS TAB1 EAC1 PO (00:27)
== END 2024-05-07 00:40 | disposition home or self-care (01) ==
LOC: ER 20:23
PROVIDERS: Student in an Organized Health Care Education/Training Program
DX: L02.211 Cutaneous abscess of abdominal wall (principal); J43.9 Emphysema, unspecified; J98.11 Atelectasis; Z88.5 Allergy status to narcotic agent; Z88.8 Allergy status to other drugs, medicaments and biological substances; Z87.891 Personal history of nicotine dependence; Z79.899 Other long term (current) drug therapy
CPT/HCPCS: 36415; 74177; 80053; 81001; 83605; 85025; 87040; 87086; 99284-25; A9270; Q9967

== ENCOUNTER → 2024-05-11 | Outpatient (CLI) | payer OTHER ==
[~2024-05-11] MED LIST changes: +BACTRIM DS TAB1 EAC1 PO
[2024-05-11 19:26] LABS: Candida Group, PCR NOT DETECTED (NOT DETECT); Candida glabrata-krusei, PCR NOT DETECTED (NOT DETECT)
[2024-05-11 19:50] LABS: Bacterial Vaginosis PCR Positive (NEGATIVE)
[2024-05-14 21:32] LABS: APTIMA MEDIA TYPE Unisex Swab; C. TRACHOMATIS BY TMA Negative (Negative); N. GONORRHOEAE BY TMA Negative (Negative); SPECIMEN SOURCE Vaginal
[2024-05-15 01:34] LABS: HSV 1 SUBTYPE BY PCR Not Detected; HSV 2 SUBTYPE BY PCR Detected; HSV SUBTYPE SOURCE CERVIX
== END | disposition home or self-care (01) ==
LOC: LAB 18:02 → LAB SHORT 18:02
PROVIDERS: Emergency Medicine
DX: N39.0 Urinary tract infection, site not specified (principal); Z72.51 High risk heterosexual behavior
CPT/HCPCS: 87086; 87481; 87491; 87529; 87591; 87661; 87801

== ENCOUNTER 2024-08-02 10:19 | Observation (INO) | payer OTHER ==
[~2024-08-02] VITALS: Ht 159 cm; Wt 78.0 kg
[2024-08-02] VITALS (20 sets, daily range): BP systolic 94–147; BP diastolic 52–74
[~2024-08-02 10:19] MED LIST changes: +CLON.5 PO; +CeFAZolin Sodium 2,000 MG in NS 100 ML IV SCH; +DESV50; -KYZATREX100 MG; +Lactated Ringer's 1,000 ML IV SCH; +OZEMPIC0.25 MG/02 SQ; +Prozac20 MG PO; +TESTOSTERONE SC
[2024-08-02] MEDS ORDERED: CeFAZolin Sodium 2,000 MG VIAL ONE (10:46)
[2024-08-02] MEDS ORDERED: Bupivacaine 0.5% HCl 5 MG/ML 30MLVIAL ONE (11:25)
--- NOTE | 2024-08-02 11:28 | NUR ---
History, Chart, Medications and Allergies reviewed before start of procedure. Patient up to Ambulate independently. Gait steady. Pre-Op teaching done. Pt verbalizes understanding. Patient confirms NPO status and agrees with scheduled surgery. Patient reports completing Chlorhexadine shower X2 prior to admission to hospital. Patient States Post-Procedure ride home has been arranged.
[2024-08-02] MEDS ORDERED: Midazolam HCl 1MG / ML 2ML Vial IV ONE (11:35)
[2024-08-02] MEDS ORDERED: propofoL 20 ML IV ONE (11:44)
[2024-08-02] MEDS ORDERED: FentaNYL Citrate 50 MCG/ML 2 ML Injection ONE ×2 (11:45→13:24)
[2024-08-02] MEDS ORDERED: Dexamethasone Sod Phos 10 MG/ML 1ML VIAL ONE (12:28)
[2024-08-02] MEDS ORDERED: Sodium Chloride 0.9% Inj 20 ML IV ONE (12:28)
[2024-08-02] MEDS ORDERED: Ropivacaine 0.5% HCL/PF 5 MG/ML 30ML Vial ONE (12:32)
[2024-08-02] MEDS ORDERED: Albuterol HFA200 ACT/6.7 GM INH INH SCH (13:55)
[2024-08-02] MEDS ORDERED: Ondansetron HCl 2 MG / ML 2ML Vial IV PRN (14:10)
[2024-08-02] MEDS ORDERED: FLU VACC TS2024-25(6MOS UP)/PF 45 MCG/0.5 ML SYRINGE IM SCH (14:10)
[2024-08-02] MEDS ORDERED: OxyCODONE 10/Acetamin 325 TABLET PO PRN (14:15)
[2024-08-02] MEDS ORDERED: Ketorolac Tromethamine 30mg Vial IV PRN (14:20)
--- NOTE | 2024-08-02 14:25 | NUR ---
ARRIVED TO ROOM 210 FROM PACU VIA GURNEY S/P I&D OF ABD WALL. PATIENT AWAKE, MINIMAL PAIN, ABD DRESSING-ABD AND MEFIX TAPE, NO DRAINAGE. NO N/V, VSS AFEBRILE. ABLE TO STAND AND TRANSFER TO BSC, VOIDED 500ML. FRIEND AT BEDSIDE.
[2024-08-02] MEDS ORDERED: DiphenhydrAMINE HCL 25 MG Cap PO PRN (14:55)
--- NOTE | 2024-08-02 19:34 | NUR ---
SHIFT SUMMARY POD0 ABDOMINAL WASHOUT, A/OX4, VSS, TOLERATING PO, AMBULATING INDEPENDENTLY, VOIDING WELL, PAIN WELL MANAGED. ABD DRESSING REINFORCED 2X THIS SHIFT, DISCUSSED WITH SURGERY AND GOT ORDERSTO CHANGE DRESSING PRN R/T DRAINAGE. NO ACUTE EVENTS TODAY, CALL LIGHT IN REACH.
--- NOTE | 2024-08-03 00:25 | NUR ---
WITH DRESSING CHANGES TONIGHT,GUAZE PACKING WAS NOT REMOVED DUE TO CONCERNS OF A CLOT POSSIBLY PRESENT.OTHER DRESSINGS WERE CHANGED WITH DRNG GETTING IT TRAINING SPECIALIST INITIALLY TO SERO SANG COLOR.AT THIS TIME,PT WITH INCREASED DRNG RETURNING TO APPEARANCE OF BRIGHT RED BLOOD SATURATING DRESSING REINFORCEMENTS,AND DRAINING ONTO ABD BINDER PLUS GOWN.VSS.I CALLED DR KAPLAN AND ADVISED OF ABOVE.DR KAPLAN INSTRUCTED ME TO REPLACE ABD BINDER TIGHLY,ALSO ADVISED ME TO PLACE ICE.DR MONTEIRO DOES NOT NEED LABS ORDERED AT THIS TIME.
--- NOTE | 2024-08-03 00:39 | NUR ---
SURGICAL SITE POST OP SITE CONTINUES TO BLEED. DRESSING CHANGED FOR THE 4TH TIME POST OP. DRAINAGE IS BRIGHT RED, SATURATED THE 4X4, AND BLEED THROUGH ONTO THE GOWN. DRESSINGS CHANGED AGAIN. VITALS ARE STABLE. PT A/OX4. PT REPORTING PAIN IS BETTER AFTER RECEIVING PAIN MEDS EARLIER, SEE EMAR. INFRASTRUCTURE TECH ASLO ASSESSED SURGICAL SITE WITH THIS RN. DR. KAPLAN CALLED APPROX 0030 AND NOTIFIED OF INCREASED BLEEDING AT SITE. HE DID NOT WANT TO ORDER LABS. HE STATES TO PLACE ABD BINDER AND APPY ICE.
[2024-08-03 02:12] VITALS: BP 109/63
[2024-08-03 04:02] VITALS: BP 121/63
--- NOTE | 2024-08-03 05:21 | NUR ---
SHIFT SUMMARY PT POD 0 ABD I&D. PT HAD SOME INCREASED BLEEDING AT SURGICAL SITE THIS SHIFT, AND IT WAS REPORTED BY JASON RN THAT PT HAD INC BLEEDING ALSO. DRESSING WAS CHANGED TWICE THIS SHIFT DUE TO SATURATION. DR. KAPLAN CALLED AND NOTIFIED OF SURGICAL SITE BLEEDING, AND THE NEED FOR FREQUENT DRESSING CHANGES. HE GAVE ORDERS FOR ABD BINDER AND ICE. AFTER DRESSING WAS CHANGED FOR THE SECOND TIME, WITH ABD BINDER AND ICE APPLIED. BLEEDING SLOWED AFTER FOLLWING INTERVENTIONS, NO SPOTTING NOTED ON DRESSING. VITALS ARE STABLE. PAIN HAS BEEN MANAGED PER EMAR. PT UP AMBULATING INDEPENDENTLY. VOIDING. PT HAS BEEN NPO SINCE MIDNIGHT IN CASE OF PROCEDURE TODAY. BED IN LOWEST POSITION, CALL LIGHT WITHIN REACH.
[2024-08-03 06:36] VITALS: BP 120/58
[2024-08-03 07:09] VITALS: BP 108/67
[2024-08-03] MEDS ORDERED: LUMATEPERONE 42 MG PO SCH (09:00)
[2024-08-03] MEDS ORDERED: Progesterone, Micronized 100 MG Cap PO SCH (09:00)
[2024-08-03] MEDS ORDERED: FLUoxetine HCL 20 MG CAP PO SCH (09:00)
[2024-08-03] MEDS ORDERED: buPROPion HCL 150 MG TAB.SR.12H PO SCH (09:00)
[2024-08-03] MEDS ORDERED: Enoxaparin 40 MG/0.4 ML SYR SC SCH (09:00)
[2024-08-03] MEDS ORDERED: ClonazePAM 0.5 MG Tab PO PRN (09:35)
[2024-08-03] MEDS ORDERED: Albuterol HFA200 ACT/6.7 GM INH INH PRN (10:10)
[2024-08-03 14:30] VITALS: BP 119/70
--- NOTE | 2024-08-03 16:33 | NUR ---
UPDATE PT REMAINS ALERT AND ORIENTED. VS STABLE. PT TOLERATING AMBULATION. ABD INCISION WITH DRESSING THAT REMAINS INTACT. ABD PAD CHANGED THIS AFTERNOON. REPORT GIVEN TO DARREL SANTANA TO ASSUME CARE. DRESSING ASSESSED TOGETHER DURING REPORT.
--- NOTE | 2024-08-03 16:34 | NUR ---
CARE ASSUMED OF PT AT THIS TIME. BEDSIDE REPORT COMPLETED. ABD PAD OVER MIDLINE DRESSING CHANGED, PACKING LEFT IN PLACE. SPOKE WITH PT AT LENGTH REGARDING PAIN MANAGEMENT AND EXPRECTATIONS. CALL LIGHT WITHIN REACH.
--- NOTE | 2024-08-03 19:50 | NUR ---
SHIFT SUMMARY NO CHANGES TO REPORT SINCE CARE ASSUMED OF PT. BEDSIDE REPORT GIVEN TO SHANAE RN.
[2024-08-03 19:57] VITALS: BP 120/62
--- NOTE | 2024-08-03 20:36 | NUR ---
BLOOD CULTURES DR. KAPLAN NOTIFIED OF POSITIVE BLOOD CULTURES THIS EVENING. BACTRIM ORDERED.
[2024-08-03] MEDS ORDERED: Trimethoprim/Sulfamethoxazole DS Tab PO SCH (21:00)
--- NOTE | 2024-08-04 04:54 | NUR ---
SHIFT SUMMARY NO ACUTE CHANGES TO REPORT OVERNIGHT. PT HAS DENIED PAIN. ABD PAD ON SURGICAL SITE CHANGED X1 THIS SHIFT. PT HAS POSITIVE BLOOD CULTURES, DR. KAPLAN NOTIFIED AND PT STARTED ON BACTRIM. PT HAS BEEN INDEPENDENT IN THE ROOM. VITALS STABLE. BED IN LOWEST POSITION, CALL LIGHT WITHIN.
[2024-08-04 05:24] VITALS: BP 119/60
[2024-08-04 07:13] VITALS: BP 118/73
[2024-08-04] MEDS ORDERED: OXYC10TA19 PO ×2 (12:00)
[2024-08-04] MEDS ORDERED: SULTRISS PO ×2 (12:02)
[2024-08-04 12:15] VITALS: BP 112/67
--- NOTE | 2024-08-04 13:36 | NUR ---
DISCHARGE NOTE PT IS IND IN ROOM, VOIDING, TOLERATING REG DIET, PAIN TOLERABLE W/ PAIN MEDS GIVEN PER EMAR. VSS. DRESSING C/D/I CURRENTLY, DR KAPLAN CHANGED AT BEDSIDE. REVIEWED DC INSTRUCTIONS W/ PT, COPY GIVEN TO PT. PT GIVEN PHYSICAL PRESCRIPTIONS, COPY IN CHART. PT TO F/U AND WOUND CARE TOMORROW, INSTRUCTED TO CALL OFFICE. . PT DC'D HOME VIA WC TO PRIVATE RIDE HOME IN STABLE CONDITION W/ BELONGINGS.
== END 2024-08-04 12:44 | disposition home or self-care (01) ==
LOC: ORSCMMR 10:19 → ORD 11:45 → SURS 13:42 → ORSCMMR 13:43 → SURS 13:52
PROVIDERS: ADMIT Surgery
PROC: 0JB80ZZ Excision of Abdomen Subcutaneous Tissue and Fascia, Open Approach (ICD-10-PCS; principal; 2024-08-02 11:45)
DX: L02.211 Cutaneous abscess of abdominal wall (principal); Z79.899 Other long term (current) drug therapy; Z87.891 Personal history of nicotine dependence; Z88.5 Allergy status to narcotic agent; Z88.8 Allergy status to other drugs, medicaments and biological substances
CPT/HCPCS: 87070; 87075; 87077; 87147; 87186; 87205; 88300; 88305; 94640; 94664; 94760; 96374; 96376; A9270; G0378; J0690; J1100; J1885; J2250; J2704; J2795; J3010; J7120

== ENCOUNTER 2024-08-05 08:39 | Day surgery (SDC) | payer OTHER ==
[~2024-08-05 08:39] MED LIST changes: -CeFAZolin Sodium 2,000 MG in NS 100 ML IV SCH; -Lactated Ringer's 1,000 ML IV SCH; +OXYC10TA19 PO; +SULTRISS PO
== END 2024-08-07 23:00 | disposition home or self-care (01) ==
LOC: WOUND 08:39
DX: T81.31XD Disruption of external operation (surgical) wound, not elsewhere classified, subsequent encounter (principal); L02.211 Cutaneous abscess of abdominal wall; Y83.8 Other surgical procedures as the cause of abnormal reaction of the patient, or of later complication, without mention of misadventure at the time of the procedure
CPT/HCPCS: G0463

== ENCOUNTER 2024-08-08 11:20 | Emergency (ER) | payer OTHER ==
[~2024-08-08] VITALS: Ht 162.6 cm; Wt 77.6 kg
[2024-08-08 13:08] LABS: BASOPHILS ABSOLUTE AUTO 0.07 K/mm3 (0.00-0.23); BASOPHILS PERCENT AUTO 1 % (0-2); EOSINOPHILS ABSOLUTE AUTO 0.27 K/mm3 (0.00-0.68); EOSINOPHILS PERCENT AUTO 3 % (0-6); Hematocrit 33.5 % (33.0-51.0); Hemoglobin 11.3 g/dL (11.5-16.0); IMMATURE GRAN ABSOLUTE AUTO 0.08 K/mm3 (0.00-0.10); IMMATURE GRAN PERCENT AUTO 1 % (0-1); LYMPHOCYTES ABSOLUTE AUTO 1.23 K/mm3 (0.84-5.20); LYMPHOCYTES PERCENT AUTO 15 % (21-46); MONOCYTES ABSOLUTE AUTO 0.97 K/mm3 (0.16-1.47); MONOCYTES PERCENT AUTO 12 % (4-13); Mean Corpuscular HGB 33.4 pg (26.0-34.0); Mean Corpuscular HGB Conc 33.7 g/dL (31.5-36.5); Mean Corpuscular Volume 99 fL (80-100); Mean Platelet Volume 9.3 fL (9.1-12.4); NEUTROPHILS ABSOLUTE AUTO 5.36 K/mm3 (1.96-9.15); NEUTROPHILS PERCENT AUTO 67 % (41-73); Platelet Count 325 K/mm3 (150-400); RDW Coefficient Variation 13.6 % (11.7-14.2); RDW Standard Deviation 49.9 fL (35.1-46.3); Red Blood Cell Count 3.38 M/mm3 (3.80-5.20); White Blood Cell Count 7.98 K/mm3 (4.00-11.30)
[2024-08-08 13:25] LABS: Albumin, Blood 2.9 g/dL (3.4-5.0); Albumin/Globulin Ratio 0.7 (0.8-1.8); Bilirubin, Total 0.3 mg/dL (0.1-1.0); Bun/Creatinine Ratio 15.4 (12.0-20.0); Calcium, Blood 9.1 mg/dL (8.5-10.1); Creatinine, Blood 0.65 mg/dL (0.40-1.00); Potassium, Blood 4.2 mmol/L (3.5-5.5); Total Protein, Blood 6.9 g/dL (6.4-8.2)
[2024-08-08] MEDS ORDERED: Ondansetron HCl 2 MG / ML 2ML Vial IV ONE (14:25)
[2024-08-08] MEDS ORDERED: Morphine Sulfate 4 MG/1 ML Injection IV ONE (14:25)
[2024-08-08 15:19] VITALS: BP 125/113
== END 2024-08-08 15:15 | disposition home or self-care (01) ==
LOC: ER 11:20
PROVIDERS: Physician Assistant
DX: Z48.817 Encounter for surgical aftercare following surgery on the skin and subcutaneous tissue (principal); Z88.5 Allergy status to narcotic agent; Z88.8 Allergy status to other drugs, medicaments and biological substances; Z79.85 Long-term (current) use of injectable non-insulin antidiabetic drugs; Z79.899 Other long term (current) drug therapy
CPT/HCPCS: 80053; 83605; 85025; 96374; 96375; 99284-25; J2270; J2405

== ENCOUNTER 2024-08-12 03:24 | Day surgery (SDC) | payer OTHER | END 2024-08-12 23:00 | disposition home or self-care (01) | LOC: WOUND 03:24 | DX: T81.49XA Infection following a procedure, other surgical site, initial encounter (principal); L02.211 Cutaneous abscess of abdominal wall; S31.109A Unspecified open wound of abdominal wall, unspecified quadrant without penetration into peritoneal cavity, initial encounter; X58.XXXA Exposure to other specified factors, initial encounter | CPT/HCPCS: G0463 ==

== ENCOUNTER 2024-08-19 03:47 | Day surgery (SDC) | payer OTHER ==
[2024-08-19] MEDS ORDERED: Lidocaine HCl 4% Cream 5 GM ONE (14:44)
== END 2024-08-19 23:00 | disposition home or self-care (01) ==
LOC: WOUND 03:47
DX: T81.31XA Disruption of external operation (surgical) wound, not elsewhere classified, initial encounter (principal); L02.211 Cutaneous abscess of abdominal wall
CPT/HCPCS: A6213; A9270

== ENCOUNTER 2024-08-26 04:46 | Day surgery (SDC) | payer OTHER | END 2024-08-26 23:00 | disposition home or self-care (01) | LOC: WOUND 04:46 | DX: T81.31XA Disruption of external operation (surgical) wound, not elsewhere classified, initial encounter (principal) ==

== ENCOUNTER 2024-08-28 01:19 | Day surgery (SDC) | payer OTHER | END 2024-08-28 23:03 | disposition home or self-care (01) | LOC: WOUND 01:19 | DX: S31.109D Unspecified open wound of abdominal wall, unspecified quadrant without penetration into peritoneal cavity, subsequent encounter (principal); L02.211 Cutaneous abscess of abdominal wall; X58.XXXD Exposure to other specified factors, subsequent encounter ==

== ENCOUNTER 2024-08-30 07:08 | Day surgery (SDC) | payer OTHER | END 2024-08-30 23:00 | disposition home or self-care (01) | LOC: WOUND 07:08 | DX: T81.31XA Disruption of external operation (surgical) wound, not elsewhere classified, initial encounter (principal) ==

== ENCOUNTER 2024-09-02 04:20 | Day surgery (SDC) | payer OTHER | END 2024-09-02 23:00 | disposition home or self-care (01) | LOC: WOUND 04:20 | DX: T81.31XA Disruption of external operation (surgical) wound, not elsewhere classified, initial encounter (principal); L02.211 Cutaneous abscess of abdominal wall ==

== ENCOUNTER 2024-09-04 06:20 | Day surgery (SDC) | payer OTHER | END 2024-09-08 23:00 | disposition home or self-care (01) | LOC: WOUND 06:20 | DX: S31.109S Unspecified open wound of abdominal wall, unspecified quadrant without penetration into peritoneal cavity, sequela (principal); L02.211 Cutaneous abscess of abdominal wall; X58.XXXS Exposure to other specified factors, sequela ==

== ENCOUNTER 2024-09-06 04:46 | Day surgery (SDC) | payer OTHER | END 2024-09-08 23:00 | disposition home or self-care (01) | LOC: WOUND 04:46 | DX: T81.31XD Disruption of external operation (surgical) wound, not elsewhere classified, subsequent encounter (principal); L02.211 Cutaneous abscess of abdominal wall; Y83.8 Other surgical procedures as the cause of abnormal reaction of the patient, or of later complication, without mention of misadventure at the time of the procedure ==

== ENCOUNTER 2024-09-09 06:27 | Day surgery (SDC) | payer OTHER | END 2024-09-09 23:00 | disposition home or self-care (01) | LOC: WOUND 06:27 | DX: T81.31XD Disruption of external operation (surgical) wound, not elsewhere classified, subsequent encounter (principal); L02.211 Cutaneous abscess of abdominal wall; S31.109D Unspecified open wound of abdominal wall, unspecified quadrant without penetration into peritoneal cavity, subsequent encounter; Y83.8 Other surgical procedures as the cause of abnormal reaction of the patient, or of later complication, without mention of misadventure at the time of the procedure; X58.XXXD Exposure to other specified factors, subsequent encounter ==

== ENCOUNTER 2024-09-11 03:24 | Day surgery (SDC) | payer OTHER | END 2024-09-11 23:00 | disposition home or self-care (01) | LOC: WOUND 03:24 | DX: S31.109A Unspecified open wound of abdominal wall, unspecified quadrant without penetration into peritoneal cavity, initial encounter (principal); L02.211 Cutaneous abscess of abdominal wall ==

== ENCOUNTER 2024-09-13 06:23 | Day surgery (SDC) | payer OTHER | END 2024-09-13 23:00 | disposition home or self-care (01) | LOC: WOUND 06:23 | DX: S31.109D Unspecified open wound of abdominal wall, unspecified quadrant without penetration into peritoneal cavity, subsequent encounter (principal); L02.11 Cutaneous abscess of neck; X58.XXXD Exposure to other specified factors, subsequent encounter ==

== ENCOUNTER 2024-09-16 06:28 | Day surgery (SDC) | payer OTHER | END 2024-09-16 23:00 | disposition home or self-care (01) | LOC: WOUND 06:28 | DX: T81.31XA Disruption of external operation (surgical) wound, not elsewhere classified, initial encounter (principal) ==

== ENCOUNTER 2024-09-18 05:31 | Day surgery (SDC) | payer OTHER | END 2024-09-18 23:00 | disposition home or self-care (01) | LOC: WOUND 05:31 | DX: T81.31XA Disruption of external operation (surgical) wound, not elsewhere classified, initial encounter (principal) ==

== ENCOUNTER 2024-09-20 04:01 | Day surgery (SDC) | payer OTHER | END 2024-09-20 23:00 | disposition home or self-care (01) | LOC: WOUND 04:01 | DX: T81.31XA Disruption of external operation (surgical) wound, not elsewhere classified, initial encounter (principal); L02.211 Cutaneous abscess of abdominal wall ==

== ENCOUNTER 2024-09-23 01:22 | Day surgery (SDC) | payer OTHER | END 2024-09-23 23:00 | disposition home or self-care (01) | LOC: WOUND 01:22 | DX: T81.31XD Disruption of external operation (surgical) wound, not elsewhere classified, subsequent encounter (principal); L02.211 Cutaneous abscess of abdominal wall | CPT/HCPCS: A6213; G0463 ==

== ENCOUNTER 2024-10-01 00:26 | Day surgery (SDC) | payer OTHER | END 2024-10-01 23:11 | disposition home or self-care (01) | LOC: WOUND 00:26 | DX: T81.31XA Disruption of external operation (surgical) wound, not elsewhere classified, initial encounter (principal); L02.211 Cutaneous abscess of abdominal wall | CPT/HCPCS: A6213; G0463 ==

== ENCOUNTER 2024-10-08 00:42 | Day surgery (SDC) | payer OTHER ==
[2024-10-08] MEDS ORDERED: Lidocaine HCl 4% Cream 5 GM ONE (11:15)
== END 2024-10-08 23:00 | disposition home or self-care (01) ==
LOC: WOUND 00:42
DX: L02.211 Cutaneous abscess of abdominal wall (principal); T81.31XA Disruption of external operation (surgical) wound, not elsewhere classified, initial encounter; Y83.8 Other surgical procedures as the cause of abnormal reaction of the patient, or of later complication, without mention of misadventure at the time of the procedure
CPT/HCPCS: A6213; A9270

== ENCOUNTER 2024-10-15 00:38 | Day surgery (SDC) | payer OTHER | END 2024-10-15 23:00 | disposition home or self-care (01) | LOC: WOUND 00:38 | DX: T81.31XA Disruption of external operation (surgical) wound, not elsewhere classified, initial encounter (principal); L02.211 Cutaneous abscess of abdominal wall | CPT/HCPCS: A6213; G0463 ==

== ENCOUNTER 2024-10-22 03:35 | Day surgery (SDC) | payer OTHER | END 2024-10-22 23:15 | disposition home or self-care (01) | LOC: WOUND 03:35 | DX: S31.109A Unspecified open wound of abdominal wall, unspecified quadrant without penetration into peritoneal cavity, initial encounter (principal); Z79.85 Long-term (current) use of injectable non-insulin antidiabetic drugs; Z79.899 Other long term (current) drug therapy; X58.XXXA Exposure to other specified factors, initial encounter | CPT/HCPCS: A6213; G0463 ==

== ENCOUNTER 2024-10-29 03:52 | Day surgery (SDC) | payer OTHER | END 2024-10-29 23:10 | disposition home or self-care (01) | LOC: WOUND 03:52 | DX: T81.31XD Disruption of external operation (surgical) wound, not elsewhere classified, subsequent encounter (principal); S31.109D Unspecified open wound of abdominal wall, unspecified quadrant without penetration into peritoneal cavity, subsequent encounter; L02.211 Cutaneous abscess of abdominal wall; Y83.8 Other surgical procedures as the cause of abnormal reaction of the patient, or of later complication, without mention of misadventure at the time of the procedure; X58.XXXD Exposure to other specified factors, subsequent encounter | CPT/HCPCS: A6213; G0463 ==

== ENCOUNTER 2024-11-06 04:30 | Day surgery (SDC) | payer OTHER | END 2024-11-06 23:00 | disposition home or self-care (01) | LOC: WOUND 04:30 | DX: L02.211 Cutaneous abscess of abdominal wall (principal); S31.109D Unspecified open wound of abdominal wall, unspecified quadrant without penetration into peritoneal cavity, subsequent encounter; X58.XXXD Exposure to other specified factors, subsequent encounter | CPT/HCPCS: G0463 ==

== ENCOUNTER 2025-05-28 22:16 | Emergency (ER) | payer OTHER ==
[~2025-05-28] VITALS: Ht 162.6 cm; Wt 77.1 kg
[2025-05-28 22:21] VITALS: BP 143/83
== END 2025-05-28 23:59 | disposition home or self-care (01) ==
LOC: ER 22:16
DX: R22.0 Localized swelling, mass and lump, head (principal); R23.2 Flushing; R11.0 Nausea; T39.395A Adverse effect of other nonsteroidal anti-inflammatory drugs [NSAID], initial encounter; Z87.891 Personal history of nicotine dependence; Z88.8 Allergy status to other drugs, medicaments and biological substances; Z88.5 Allergy status to narcotic agent; Z79.85 Long-term (current) use of injectable non-insulin antidiabetic drugs; Z79.899 Other long term (current) drug therapy
CPT/HCPCS: 99282; A9270